=== PATIENT | male | born 1995 | race Caucasian/White ===

== ENCOUNTER 2018-01-30 15:59 | Emergency (ER) | payer OTHER ==
[2018-01-30 17:17] VITALS: RESP 20
[2018-01-30] MEDS ORDERED: DEXAMETHASONE SOD PHOSPHATE 10 MG/ML 1 ML VIAL IV STA (18:11)
[2018-01-30] MEDS ORDERED: IBUPROFEN 600 MG TAB PO STA (18:11)
[2018-01-30] MEDS ORDERED: SODIUM CHLORIDE 0.9% 1,000 ML IV ONE (18:12)
[2018-01-30 18:39] LABS: Basophils % (A) 0 %; Eosinophils # (A) 0.1 k/uL (0-0.7); Eosinophils % (A) 1 %; HCT 43.7 % (39.0-53.0); HGB 14.9 gm/dL (13.0-17.5); Lymphocytes # (A) 1.6 k/uL (1.0-4.8); Lymphocytes % (A) 17 %; MCH 29.6 pg (25.0-35.0); MCV 86.9 fL (80.0-100.0); Mean Platelet Volume 6.6; Monocytes # (A) 0.5 k/uL (0-1.0); Monocytes % (A) 6 %; Neutrophils # (A) 6.9 k/uL (1.3-7.7); Neutrophils % (A) 73 %; Platelet Count 325 k/uL (150-450); RBC 5.03 m/uL (4.30-5.90); RDW 13.3 % (11.5-15.5); WBC 9.4 k/uL (3.8-10.6)
--- NOTE | 2018-01-30 18:42 | ED ---
ENT HPI - General Chief complaint: ENT Stated complaint: tonsil stones Time Seen by Provider: 01/30/18 17:27 Source: patient Mode of arrival: ambulatory Limitations: no limitations - History of Present Illness Initial comments: This is a 22-year-old male no past medical history who presents today for chief complaint of tonsillar enlargement and sore throat times one day. Patient states that yesterday he noticed that he had a sore throat, he noticed erythema of the back throat and white dots. He had some pain with swallowing, but no difficulty. Patient states they woke up this morning with worsening sore throat and when he looked into the mirror he noticed that his right tonsil was much larger than his left and it looked almost as though he had a bubble on it. Patient said approach to his mother, who insisted he present to the emergency department. Patient denies fever, chills, fatigue, headache, nausea, vomiting, diarrhea, congestion, lacrimation, rhinorrhea, anterior throat pain, difficulty swallowing, ear pain, difficulty breathing, cough, rash. [facility] signs stable patient is afebrile appearing well and nontoxic. Patient denies any recent fever, chills, shortness of breath, chest pain, back pain, abdominal pain, nausea or vomiting, numbness or tingling, dysuria or hematuria, constipation or diarrhea, headaches or visual changes, or any other complaints. Patient denies any recent antibiotic use, or drug ALLERGIES. - Related Data Previous Rx's Medication Instructions Recorded Clindamycin [Cleocin] 300 mg PO Q6H 10 Days #60 capsule 01/30/18 predniSONE 20 mg PO DAILY 4 Days #4 tab 01/30/18 Allergies Allergy/AdvReac Type Severity Reaction Status Date / Time No Known Allergies Allergy Verified 01/30/18 19:40 Review of Systems ROS Statement: Those systems with pertinent positive or pertinent negative responses have been documented in the HPI. ROS Other: All systems not noted in ROS Statement are negative. Constitutional: Denies: fever, chills Eyes: Denies: eye pain ENT: Reports: as per HPI, throat pain. Denies: ear pain Respiratory: Denies: cough, dyspnea, wheezes, stridor Cardiovascular: Denies: chest pain, edema Endocrine: Denies: fatigue Gastrointestinal: Denies: abdominal pain, nausea, vomiting, diarrhea, constipation, hematemesis Genitourinary: Denies: urgency, dysuria, frequency, hematuria Skin: Reports: as per HPI. Denies: rash Neurological: Denies: headache, confusion Past Medical History Past Medical History: Asthma History of Any Multi-Drug Resistant Organisms: None Reported Past Surgical History: No Surgical Hx Reported Past Psychological History: No Psychological Hx Reported Smoking Status: Current every day smoker Past Alcohol Use History: None Reported Past Drug Use History: None Reported General Exam - General Exam Comments Initial Comments: General: The patient is awake and alert, in no distress, and does not appear acutely ill. Eye: Pupils are equal, round and reactive to light, extra-ocular movements are intact. No nystagmus. There is normal conjunctiva bilaterally. No signs of icterus. Ears, nose, mouth and throat: There are moist mucous membranes and no oral lesions. Oropharynx and tonsils are erythematous, there white tonsillar exudates bilaterally. Both tonsils are enlarged however the right is larger than the left causing uvula deviation to the left. Nares patent. Unable to visualize the tympanic membranes due to cerumen laterally, no obvious evidence of external auditory canal erythema or drainage. Neck: The neck is supple, there is no tenderness or JVD. There is submandibular and anterior cervical lymphadenopathy bilaterally. Cardiovascular: There is a regular rate and rhythm. No murmur, rub or gallop is appreciated. Respiratory: Lungs are clear to auscultation, respirations are non-labored, breath sounds are equal. No wheezes, stridor, rales, or rhonchi. Gastrointestinal: Soft, non-distended, non-tender abdomen without masses or organomegaly noted. There is no rebound or guarding present. No CVA tenderness. Bowel sounds are unremarkable. Musculoskeletal: Normal ROM, no tenderness. Strength 5/5. Sensation intact. Pulses equal bilaterally 2+. Neurological: A&O x 3. CN II-XII intact, There are no obvious motor or sensory deficits. Coordination appears grossly intact. Speech is normal. Skin: Skin is warm and dry and no rashes or lesions are noted. Psychiatric: Cooperative, appropriate mood & affect, normal judgment. Limitations: no limitations Course Vital Signs 01/30/18 01/30/18 17:15 19:29 Temperature 96.2 F L 96.3 F L Pulse Rate 106 H 84 Respiratory 20 20 Rate Blood Pressure 133/93 136/76 O2 Sat by Pulse 95 95 Oximetry Medical Decision Making - Medical Decision Making Due to physical examination findings including significantly larger right tonsil than the left with uvula deviation to the left, I was suspicious for a peritonsillar abscess. Patient was given 10 mg of Decadron, a liter bolus of fluids, and ibuprofen 600 mg by mouth .CBC CMP were obtained returned unremarkable. CT of the soft tissues of neck were obtained revealing no abscess and only inflammatory changes of the tonsils. At this time we feel his symptoms are consistent with a bacterial pharyngitis/tonsillitis patient be discharged with 3 mg of clindamycin 300 times a day for 10 days, as well as prednisone 20 mg daily and ENT follow-up. Case was discussed in detail with Dr. Schmidt who agrees with the impression and plan. Patient discharged in stable condition. - Lab Data Result diagrams: 01/30/18 18:22 01/30/18 18:22 Lab Results 01/30/18 01/30/18 Range/Units 18:22 18:22 WBC 9.4 (3.8-10.6) k/uL RBC 5.03 (4.30-5.90) m/uL Hgb 14.9 (13.0-17.5) gm/dL Hct 43.7 (39.0-53.0) % MCV 86.9 (80.0-100.0) fL MCH 29.6 (25.0-35.0) pg MCHC 34.0 (31.0-37.0) g/dL RDW 13.3 (11.5-15.5) % Plt Count 325 (150-450) k/uL Neutrophils % 73 % Lymphocytes % 17 % Monocytes % 6 % Eosinophils % 1 % Basophils % 0 % Neutrophils # 6.9 (1.3-7.7) k/uL Lymphocytes # 1.6 (1.0-4.8) k/uL Monocytes # 0.5 (0-1.0) k/uL Eosinophils # 0.1 (0-0.7) k/uL Basophils # 0.0 (0-0.2) k/uL Sodium 138 (137-145) mmol/L Potassium 5.0 (3.5-5.1) mmol/L Chloride 104 (98-107) mmol/L Carbon Dioxide 20 L (22-30) mmol/L Anion Gap 14 mmol/L BUN 9 (9-20) mg/dL Creatinine 0.70 (0.66-1.25) mg/dL Est GFR (CKD-EPI)AfAm >90 (>60 ml/min/1.73 sqM) Est GFR (CKD-EPI)NonAf >90 (>60 ml/min/1.73 sqM) Glucose 78 (74-99) mg/dL Calcium 9.7 (8.4-10.2) mg/dL Total Bilirubin 1.0 (0.2-1.3) mg/dL AST 37 (17-59) U/L ALT 37 (21-72) U/L Alkaline Phosphatase 79 (38-126) U/L Total Protein 8.6 H (6.3-8.2) g/dL Albumin 4.7 (3.5-5.0) g/dL Disposition Clinical Impression: Acute bacterial tonsillitis Disposition: HOME SELF-CARE Condition: Good Instructions: Tonsillitis (ED), Pharyngitis (ED) Additional Instructions: Please use medication as discussed. Please follow-up with ENT in 1-2 days. Please follow-up with family doctor in the next 2 days of symptoms have not improved. Please return to emergency room if the symptoms increase or worsen or for any other concerns. Prescriptions: Clindamycin [Cleocin] 300 mg PO Q6H 10 Days #60 capsule predniSONE 20 mg PO DAILY 4 Days #4 tab Is patient prescribed a controlled substance at d/c from ED?: No Referrals: Lisa Lozada MD [Primary Care Provider] - 1-2 days Izaiah Fajardo DO [Doctor of Osteopathic Medicine] - 1-2 days Time of Disposition: 20:04
[2018-01-30 18:56] LABS: ALT 37 U/L (21-72); AST 37 U/L (17-59); Albumin 4.7 g/dL (3.5-5.0); Alkaline Phosphatase 79 U/L (38-126); Anion Gap 14 mmol/L; Blood Urea Nitrogen 9 mg/dL (9-20); Calcium 9.7 mg/dL (8.4-10.2); Carbon Dioxide 20 mmol/L (22-30); Chloride 104 mmol/L (98-107); Glucose 78 mg/dL (74-99); Sodium 138 mmol/L (137-145); Total Protein 8.6 g/dL (6.3-8.2)
[2018-01-30 19:30] VITALS: BP 136/76; PULSE 84; TEMP 96.3
--- NOTE | 2018-01-30 19:36 | CT ---
EXAMINATION TYPE: CT soft tissue neck w con DATE OF EXAM: 01/30/2018 7:17 PM COMPARISON: Throat pain HISTORY: NECK SWELLIG AND PAIN WITH SWALLOWING CT DLP: 851.9 mGycm Automated exposure control for dose reduction was used. CONTRAST: CT scan of the neck is performed following with IV Contrast, patient injected with 100 mL of Isovue 3 00. Axial images are obtained, coronal and sagittal reformatted images are reviewed. FINDINGS: The upper lung anderson are clear. There is normal branching pattern of the great vessels on the aortic arch. There is no superior mediastinal mass. Thyroid gland is symmetric. There is normal contrast op acification of the carotid arteries and jugular veins. There is normal contrast opacification of the vertebral arteries. Epiglottis appears normal. There is bulky enlargement of the tonsils. Tonsils janiya sures 4.6 x 2.2 cm. There is enlargement of the uvula. There is no evidence of a abscess. There is normal appearance of the parotid glands and submandibular salivary glands. There are anterio r triangle cervical lymph nodes measure up to 1.3 cm. There is bulky enlargement of the adenoids that measure 1.8 cm. IMPRESSION: There is enlargement of the tonsils and adenoids and the uvula consistent with inflammat ory process. No abscess. Normal epiglottis.
== END 2018-01-30 20:10 | disposition home or self-care (01) ==
LOC: EC 15:59
DX: J03.90 Acute tonsillitis, unspecified (principal); F17.200 Nicotine dependence, unspecified, uncomplicated
CPT/HCPCS: 36415; 70491; 80053; 85025; 96361; 96374; 99284